=== PATIENT | female | born 1995 | race African-American/Black ===

== ENCOUNTER 2017-11-09 02:49 | Emergency (ER) | payer BC, MEDICAID ==
[~2017-11-09] VITALS: Ht 157.5 cm; Wt 60.0 kg
[~2017-11-09 02:49] MED LIST: AMOX500T PO; DIAZ5 PO; NAPR500 PO
[2017-11-09 02:54] VITALS: BP 117/55; PULSE 115; RESP 18; TEMP 100.4; O2SAT 100
[2017-11-09] MEDS ORDERED: SODIUM CHLOR 0.9% 1000 ML INJ 1,000 ML IV ONE (04:30)
[2017-11-09] MEDS ORDERED: KETOROLAC TROMETHAMINE 30 MG/ML (IVP) VIAL IV PUSH ONE (04:30)
[2017-11-09 05:19] LABS: BILIRUBIN, URINE NEG (NEG); BLOOD, URINE MOD (NEG); GLUCOSE,URINE NEG (NEG); KETONE, URINE NEG (NEG); MUCUS URINE FEW /lpf (OCC); NITRITE,URINE NEG (NEG); PH, URINE 7.5 (5.0-8.5); SQUAMOUS EPITHELIAL CELL URINE 2 /hpf (0-5); URINE COLOR YELLOW (YELLW/STRAW); URINE LEUKOCYTE ESTERASE NEG (NEG)
[2017-11-09] MEDS ORDERED: IBUPROFEN 600 MG TAB PO ONE (05:30)
--- NOTE | 2017-11-09 07:03 | RADRPT ---
EXAM DATE/TIME: 11/09/2017 05:24 [place] COMPARISON: No previous studies available for comparison. INDICATIONS : Weakness and dizziness, nausea, upper left abdomen pain MEDICAL HISTORY : None. SURGICAL HISTORY : None. ENCOUNTER: Initial ACUITY: 1 day PAIN SCORE: 8/10 LOCATION: Bilateral chest FINDINGS: PA and lateral views of the chest demonstrate the lungs to be symmetrically aerated without evidence of mass, infiltrate or effusion. The cardiomediastinal contours are unremarkable. Osseous structure s are intact. CONCLUSION: No acute cardiopulmonary process. Jayme Foreman MD on November 09, 2017 at 7:01 Board Certified Radiologist. This report was verified electronically.
--- NOTE | 2017-11-09 07:04 | PD ---
HPI Chief Complaint: Cold / Flu Symptoms Time Seen by Provider: 04:22 Travel History International Travel<30 days: No Contact w/Intl Traveler<30days: No Traveled to known affect area: No History of Present Illness HPI Patient is a 22-year-old female who comes in complaining of body aches, sore throat, runny nose. She says it started 5 hours ago. She did not take anything for any of her symptoms. She denies nausea or vomiting. She denies chest pain or shortness of breath. She denies abdominal pain, nausea or vomiting. Severity is mild to moderate. PFSH Past Medical History Medical History: Denies Significant Hx Diminished Hearing: No Tetanus Vaccination: < 5 Years Influenza Vaccination: No ?: Not LMP: 10/10/2017 Past Surgical History Surgical History: No Previous Surgery Social History Alcohol Use: Yes (SOCIAL) Tobacco Use: No Substance Use: No Allergies-Medications (Allergen,Severity, Reaction): Coded Allergies: No Known Allergies (Unverified Adverse Reaction, Unknown, 11/09/17) Reported Meds & Prescriptions Reported Meds & Active Scripts Active Amoxicillin 500 Mg Tab 500 Mg PO BID 7 Days Z.0.valium5 Mg 5 Mg Tab 5 Mg PO Q8HR Z.0. M1 500 Mg Tab 500 Mg PO Q12 Review of Systems Except as stated in HPI: all other systems reviewed are Neg General / Constitutional: Positive: Fever HENT: Positive: Sore Throat, Congestion, No: Headaches Cardiovascular: No: Chest Pain or Discomfort Respiratory: No: Shortness of Breath Gastrointestinal: No: Nausea, Vomiting, Abdominal Pain Genitourinary: No: Dysuria Musculoskeletal: Positive: Myalgias Skin: No Rash, No Change in Pigmentation Physical Exam Narrative GENERAL: Awake and alert, no acute distress. SKIN: Focused skin assessment warm/dry. HEAD: Atraumatic. Normocephalic. EYES: Pupils equal and round. No scleral icterus. ENT: Tonsillar swelling with exudates. Mucous membranes pink and moist. NECK: Trachea midline. No JVD. CARDIOVASCULAR: Tachycardia. No murmur appreciated. RESPIRATORY: No accessory muscle use. Clear to auscultation. Breath sounds equal bilaterally. GASTROINTESTINAL: Abdomen soft, non-tender, nondistended. MUSCULOSKELETAL: No obvious deformities. No clubbing. No cyanosis. No edema. NEUROLOGICAL: Awake and alert. No obvious cranial nerve deficits. Motor grossly within normal limits. Normal speech. PSYCHIATRIC: Appropriate mood and affect; insight and judgment normal. Data Data Last Documented VS Vital Signs Date Time Temp Pulse Resp B/P (MAP) Pulse Ox O2 Delivery O2 Flow Rate FiO2 11/09/17 05:55 11/09/17 02:54 100.4 115 18 100 Room Air Orders Orders Iv Access Insert/Monitor (11/09/17 04:23) Complete Blood Count With Diff (11/09/17 04:23) Comprehensive Metabolic Panel (11/09/17 04:23) Group A Rapid Strep Screen (11/09/17 04:23) Urinalysis - C+S If Indicated (11/09/17 04:23) Ed Urine Pregnancytest Poc (11/09/17 04:23) Chest, Pa & Lat (11/09/17 ) Influenzae A/B Antigen (11/09/17 04:23) Sodium Chlor 0.9% 1000 Ml Inj (Ns 1000 M (11/09/17 04:30) Ketorolac Inj (Toradol Inj) (11/09/17 04:30) Ibuprofen (Motrin) (11/09/17 05:30) Labs Laboratory Tests Test 11/09/17 04:55 Urine Color YELLOW Urine Turbidity CLEAR Urine pH 7.5 Urine Specific [place] 1.021 Urine Protein NEG mg/dL Urine Glucose (UA) NEG mg/dL Urine Ketones NEG mg/dL Urine Occult Blood MOD Urine Nitrite NEG Urine Bilirubin NEG Urine Urobilinogen LESS THAN 2.0 MG/DL Urine Leukocyte Esterase NEG Urine RBC 1 /hpf Urine WBC 1 /hpf Urine Squamous Epithelial Cells 2 /hpf Urine Mucus FEW /lpf Microscopic Urinalysis Comment CULT NOT INDICATED MDM Medical Decision Making Medical Screen Exam Complete: Yes Emergency Medical Condition: Yes Differential Diagnosis Strep pharyngitis versus influenza versus viral illness versus pneumonia versus UTI Narrative Course Patient is a 22-year-old female who comes in complaining of fever, body aches, congestion, sore throat. Exam shows tonsillar swelling and exudates. Labs ordered as well as an IV and IV fluids. She is refusing any labs or the IV fluids. Offer ibuprofen. Strep test was sent and is positive. When results came back, patient was no longer in the emergency department. She left and did not tell anyone. She cannot be found throughout the emergency department. She did elope. Patient Instructions: General Instructions Departure Forms: Tests/Procedures Disposition: 07 AGAINST MEDICAL ADVICE Condition: Stable Leonila Erazo MD Nov 09, 2017 07:03
== END 2017-11-09 09:12 | disposition left against medical advice (07) ==
LOC: NEPC 02:49
DX: R50.9 Fever, unspecified (principal); R52 Pain, unspecified; R09.81 Nasal congestion; J02.9 Acute pharyngitis, unspecified; R09.89 Other specified symptoms and signs involving the circulatory and respiratory systems; M79.1 Myalgia; R00.0 Tachycardia, unspecified
CPT/HCPCS: 71046; 81001; 84703; 87804; 87880; 99284